=== PATIENT | female | born 1970 | race Caucasian/White ===

== ENCOUNTER 2020-08-13 01:52 | Inpatient (IN) | payer OTHER ==
[~2020-08-13] VITALS: Ht 160 cm; Wt 49.9 kg
[2020-08-13] MEDS ORDERED: CLONIDINE HCL 0.2 MG TABLET PO ONE (03:00)
[2020-08-13] MEDS ORDERED: NITROGLYCERIN OINT 1 GM PACKET TP ONE ×2 (03:00→03:30)
--- NOTE | 2020-08-13 03:00 | NUR ---
at bedside for MSE.
[2020-08-13] MEDS ORDERED: CLONIDINE HCL 0.2 MG TABLET ONE (03:30)
[2020-08-13] MEDS ORDERED: HYDROCODONE/APAP 5-325MG TABLET PO PRN (04:15)
[2020-08-13] MEDS ORDERED: Z GUARD REMEDY PASTE 57 GM TUBE TOP PRN (04:15)
[2020-08-13] MEDS ORDERED: ACETAMINOPHEN 325 MG TABLET PO PRN (04:15)
[2020-08-13] MEDS ORDERED: MAGNESIUM HYDROXIDE 30 ML LIQUID UDC PO PRN (04:15)
[2020-08-13] MEDS ORDERED: ONDANSETRON 4 MG/2 ML VIAL IV PRN (04:15)
[2020-08-13] MEDS ORDERED: TEMAZEPAM 15 MG CAPSULE PO PRN (04:15)
[2020-08-13 04:26] LABS: BASOPHILS # (AUTO) 0.1 K/uL (0.0-8.0); BASOPHILS % (AUTO) 0.9 % (0.0-2.0); EOSINOPHILS # (AUTO) 0.4 K/uL (0.0-0.7); EOSINOPHILS % (AUTO) 6.8 % (0.0-7.0); HEMATOCRIT 28.6 % (31.2-41.9); HEMOGLOBIN 9.3 g/dL (10.9-14.3); LYMPHOCYTES # (AUTO) 1.3 K/uL (20.0-40.0); LYMPHOCYTES % (AUTO) 21.8 % (20.5-51.5); MEAN CORPUSCULAR HEMOGLOBIN 28.7 uug (24.7-32.8); MEAN CORPUSCULAR HGB CONC 33 g/dL (32.3-35.6); MEAN CORPUSCULAR VOLUME 87.7 fL (75.5-95.3); MONOCYTES # (AUTO) 0.6 K/uL (2.0-10.0); MONOCYTES % (AUTO) 9.2 % (0.0-11.0); NEUTROPHILS # (AUTO) 3.8 K/uL (1.8-8.9); NEUTROPHILS % (AUTO) 61.3 % (38.5-71.5); PLATELET COUNT (AUTO) 238 K/uL (179-408); RED BLOOD CELL COUNT(AUTO) 3.26 MIL/uL (3.63-4.92); WHITE BLOOD COUNT (AUTO) 6.1 K/uL (3.8-11.8)
[2020-08-13] MEDS ORDERED: diphenhydrAMINE 25 MG CAP PO ONE ×2 (04:26→04:30)
[2020-08-13 04:30] LABS: POTASSIUM 4.9 mmol/L (3.5-5.1)
[2020-08-13 04:40] LABS: CREATININE 12.2 mg/dL (0.6-1.3)
--- NOTE | 2020-08-13 05:00 | NUR ---
Pt remains AxO x4, able to make needs known. No acute distress noted. Bedpan for urinary elimnation. 150 cc urine output. Continue to monitor.
[2020-08-13] MEDS ORDERED: hydralazine PO (05:12)
[2020-08-13] MEDS ORDERED: cozaar PO (05:12)
--- NOTE | 2020-08-13 06:42 | NUR ---
Pt. admitted to [facility] , under care of BRYCE HERNANDEZ Belongs List completed. No acute distress noted.
--- NOTE | 2020-08-13 07:30 | NUR ---
Patient received from night court magistrate. Patient is alert and oriented x 4. Patient is resting in bed. Sinus rhythm on tele at 94 BPM. Patient comfortable at 2 liters of oxygen. IV 22g on right foot.
[2020-08-13] MEDS: CLONIDINE HCL 0.1 MG TABLET PO PRN (08:01)
[2020-08-13] MEDS: PANTOPRAZOLE SODIUM 40 MG TABLET.DR PO SCH (08:05)
[2020-08-13 08:15] VITALS: BP 207/136
[2020-08-13 08:52] LABS: *BILIRUBIN,URIN NEGATIVE (NEGATIVE); *BLOOD, URINE NEGATIVE (NEGATIVE); *CLARITY,URINE SLIGHTLY CLOUDY (CLEAR); *COLOR,URINE YELLOW (YELLOW); *KETONES,URINE NEGATIVE (NEGATIVE); *UROBILINOGEN,URINE 0.2 E.U./dl (NORMAL); LEUKOCYTE ESTERASE ,URINE TRACE (NEGATIVE); NITRITE, URINE NEGATIVE (NEGATIVE); UGLUCOSE 1+ (NEGATIVE)
[2020-08-13] MEDS: MORPHINE SULFATE 2 MG/1 ML DISP.SYRIN IV PRN ×2 (08:56→13:49)
--- NOTE | 2020-08-13 09:00 | NUR ---
Pt BP was 207/136, HR 87, Catapress was given, morphine IV was given. Rapid response called, pt was stating she could not breath and needed help. BP increased to 233/175 post administration of catapress. GUIDANCE CONSULTANT made aware, gave phone orders to administer hydralazine 10mg IV, Lasix 20mg IV. pt started to relax and BP started to normalize. BP 150/128, HR 88. Will continue to monitor.
[2020-08-13] MEDS ORDERED: hydrALAZINE HCL 20 MG/1 ML VIAL IV ONE (09:15)
--- NOTE | 2020-08-13 09:25 | NUR ---
pt given Lasix 20mg IV once per MD order
[2020-08-13] MEDS ORDERED: FUROSEMIDE 20 MG/2 ML VIAL IV SCH (09:30)
[2020-08-13] MEDS ORDERED: FUROSEMIDE 20 MG/2 ML VIAL IV ONE (10:00)
[2020-08-13] MEDS ORDERED: hydrALAZINE HCL 20 MG/1 ML VIAL IV PRN (10:30)
[2020-08-13 11:46] VITALS: BP 175/100
--- NOTE | 2020-08-13 12:55 | NUR ---
pt finished with dialysis, per LAUREN Dickson output was 2.6L, BP 152/96, HR 98. Pt tolerated well. will continue to monitor.
[2020-08-13] MEDS ORDERED: LORAZEPAM 1 MG TABLET PO PRN (13:15)
[2020-08-13 13:45] LABS: BACTERIA,URINE MODERATE /HPF (NONE SEEN); RBC,URINE 0-3 /HPF (0-3); SQUAMOUS EPITHELIAL CELL,UR FEW /HPF (NONE SEEN); WBC,URINE 0-3 /HPF (0-3)
[2020-08-13] MEDS: QUETIAPINE FUMARATE 100 MG TABLET PO SCH ×2 (13:49→17:34)
[2020-08-13] MEDS ORDERED: HYDR100T27 PO (14:24)
[2020-08-13] MEDS ORDERED: CLON0.3P TD (14:27)
[2020-08-13] MEDS ORDERED: QUET100T PO (14:27)
[2020-08-13] MEDS ORDERED: CLONIDINE-TTS 3 PATCH TD SCH (14:45)
[2020-08-13 15:04] VITALS: BP 158/98
[2020-08-13] MEDS: CEFTRIAXONE 1 G in IV DEXTROSE 5% 50 ML IV SCH (15:31)
[2020-08-13] MEDS ORDERED: QUETIAPINE FUMARATE 100 MG TABLET PO SCH (17:00)
[2020-08-13] MEDS: hydrALAZINE HCL 50 MG TABLET PO SCH (17:34)
[2020-08-13] MEDS ORDERED: CEphaleXIN 500 MG CAPSULE PO SCH (18:00)
--- NOTE | 2020-08-13 18:51 | NUR ---
Patient is resting in bed. Alert and oriented x 4. Skin is intact. Pt is normal sinus rhythm on tele monitor. Pt is on 3L of oxygen saturating at 96%. No signs of distress at this time. No reports of pain noted at this time. Patient is ambulatory with assist. On renal specific diet. Pt was dialyzed today, 2.6L output, permacath on right chest. Patient tolerated well. Nitropaste on left chest. Voids via bedside commode. Patient has a IV 22g on right foot, patent. All medications given as ordered. Bed in low and locked position, call light within reach, bed alarm on, and safety and fall precautions in place. Will endorse to oncoming nurse.
--- NOTE | 2020-08-13 20:11 | NUR ---
Received patient in bed alert and able to make needs known. On O2 at 3 LPM via NC saturating well.Denies pain. No s/s of distress noted.IV ON right foot patent and intact. Perma cath on right upper chest in place with dressing clean and dry.Continue safety measures. Call light with in reach .
[2020-08-13 20:20] VITALS: BP 167/108
[2020-08-13] MEDS: QUETIAPINE FUMARATE 200 MG TABLET PO SCH (20:24)
[2020-08-14] VITALS (7 sets, daily range): BP systolic 143–182; BP diastolic 85–122
[2020-08-14] MEDS: CLONIDINE HCL 0.1 MG TABLET PO PRN (00:39)
[2020-08-14] MEDS: MORPHINE SULFATE 2 MG/1 ML DISP.SYRIN IV PRN ×2 (04:27→20:55)
[2020-08-14] MEDS: PANTOPRAZOLE SODIUM 40 MG TABLET.DR PO SCH (06:34)
[2020-08-14 06:39] LABS: BASOPHILS % (AUTO) 0.1 % (0.0-2.0); EOSINOPHILS # (AUTO) 0.4 K/uL (0.0-0.7); EOSINOPHILS % (AUTO) 6.1 % (0.0-7.0); HEMATOCRIT 28.9 % (31.2-41.9); HEMOGLOBIN 9.4 g/dL (10.9-14.3); LYMPHOCYTES # (AUTO) 1.1 K/uL (20.0-40.0); LYMPHOCYTES % (AUTO) 18.5 % (20.5-51.5); MEAN CORPUSCULAR HGB CONC 33 g/dL (32.3-35.6); MEAN CORPUSCULAR VOLUME 88.7 fL (75.5-95.3); MONOCYTES # (AUTO) 0.8 K/uL (2.0-10.0); MONOCYTES % (AUTO) 13.6 % (0.0-11.0); NEUTROPHILS # (AUTO) 3.6 K/uL (1.8-8.9); NEUTROPHILS % (AUTO) 61.7 % (38.5-71.5); PLATELET COUNT (AUTO) 204 K/uL (179-408); RED BLOOD CELL COUNT(AUTO) 3.26 MIL/uL (3.63-4.92); WHITE BLOOD COUNT (AUTO) 5.9 K/uL (3.8-11.8)
[2020-08-14 06:50] LABS: MAGNESIUM 2.1 mg/dL (1.8-2.4); PHOSPHOROUS 6.3 mg/dL (2.5-4.9); POTASSIUM 4.5 mmol/L (3.5-5.1)
[2020-08-14 07:37] LABS: CREATININE 9.3 mg/dL (0.6-1.3)
[2020-08-14] MEDS: QUETIAPINE FUMARATE 100 MG TABLET PO SCH ×3 (08:32→17:20)
[2020-08-14] MEDS: hydrALAZINE HCL 50 MG TABLET PO SCH ×3 (08:32→17:20)
[2020-08-14] MEDS: LOSARTAN POTASSIUM 50 MG TABLET PO SCH (08:45)
[2020-08-14] MEDS: AMLODIPINE 10 MG TABLET PO SCH (08:45)
[2020-08-14] MEDS: ISOSORBIDE MONONITRATE 60 MG TAB.SR.24H PO SCH (09:27)
--- NOTE | 2020-08-14 12:05 | NUR ---
Domestic Laundry Worker consultation: Expander Machine Operator met with this patient today. Reason for consultation is homelessness and polysubstance use. Patient was lying down in her hospital bed when SW entered the room. Patient is awake, alert, oriented, willing to meet with this SW. Patient reports that she came to the hospital due to SOB and need for dialysis (patient received dialysis 3 x week). Patient reports being homeless and has been living at the [facility] for the past year ([address], [place] [address]). Patient presented agitated when asked about her living arrangement, stating "how many times do I have to answer this question". Patient's phone number is [phone]. Patient reports that her discharge plans are to return back to the [facility]. Patient is diagnosed with Bipolar. Patient reported not being compliant with meds, stating "I just didn't take them". Patient seen by psychiatry during this hospitalization. Patient has [employer] insurance, and receives SSI. Patient denied use of alcohol or drugs, however per patients history and physician report, patient is a current smoker and polysubstance user. Throughout this interview, patient observed to be fidgety in bed, responses were short, affect was blunted. Patient did not consistently maintain eye contact with this SW. SW offered patient homeless community resources, and patient expressed agreement with receiving these resources. SW provided patient with the following resources: the [phone] [facility] Winter Prison Program that provides locations of the winter shelters: [facility], [place], ; [facility], [address], [address], ; [facility], [facility], [address], [address], ; [employer] [place], [place], [address], [address], ; [employer] [place], [place], [address], [place], [address]; [phone]; [employer] [facility], [facility], [address], [address], ; [facility] at [facility], [address] [place], [address], [phone]; Home at [facility], [address], [address], ; [facility], [address], [address], ; [employer] [place], [employer], [address] [place] [address], ; [employer] [place] [place], [facility], [address] [place], [address], ; [employer] [place], [facility], [address], [address], ; [facility], [address] [place] [address], , [facility], [address], [place] , , [place], [address], [place] [address], , [facility], [address] [place] [address], , [facility], [address] [facility] [place] [address], , [place], [address] [place] [address], ; the [facility] homeless directory which provides a list of places that individuals can go to throughout the week for hot meals, sack lunches, food pantries, and showers; a list of mental health clinics: [facility] [address] [place] [address], ; [facility] [address] [place] [address], ; [place] [address] [place] [address], ; a list of medical clinics: [facility] [address], [place]. [place], ; [facility] [address], [address], [place] [address]; [facility] [address] [facility] [place] [address], ; and a list of substance abuse programs: [facility] Substance Abuse Self-helpline ; [facility] ; [facility] ; [facility] ; [facility] ; [facility] [phone]; [facility] [phone]. SW also provided patient with information on locations of pharmacies. Patient signed the Homeless Patient Waiver form. This SW filed the waiver in the patient's chart. SW will continue to remain available to the patient, as needed.
[2020-08-14] MEDS ORDERED: CLONIDINE-TTS 3 PATCH TD SCH (13:24)
[2020-08-14] MEDS: CEFTRIAXONE 1 G in IV DEXTROSE 5% 50 ML IV SCH (14:01)
--- NOTE | 2020-08-14 19:30 | NUR ---
Patient received from day shift RNs. Pt assessed, AOx4, on room air, no respiratory distress, complaint of lower back pain at this time. refused bed alarm despite explaining its purpose and risk. Reinforced to call for assistance.
[2020-08-14] MEDS: QUETIAPINE FUMARATE 200 MG TABLET PO SCH (21:02)
--- NOTE | 2020-08-14 21:51 | NUR ---
Made pt aware to call for assistance when she needs to use the bedside commode. Pt refused bed alarm despite explanation for its importance and reason. Verbalized refusal. Call light within reach and frequent rounding made
--- NOTE | 2020-08-14 23:03 | NUR ---
Patient asleep at this time.
--- NOTE | 2020-08-14 23:10 | NUR ---
Seroquel 100mg pulled out instead of 200mg, opened but wasted in the pyxis witnessed by trupti Milan RN
[2020-08-15 00:08] VITALS: BP 156/134
[2020-08-15 04:16] VITALS: BP 149/67
[2020-08-15] MEDS: CLONIDINE HCL 0.1 MG TABLET PO PRN (04:45)
--- NOTE | 2020-08-15 04:46 | NUR ---
Elevated BP per RIG HAND 171/105, rechecked 179/114 (129). catapres PO 0.1 PRN given at this time, will recheck BP in 30 mins'
[2020-08-15 07:01] LABS: BASOPHILS % (AUTO) 0.5 % (0.0-2.0); EOSINOPHILS # (AUTO) 0.4 K/uL (0.0-0.7); EOSINOPHILS % (AUTO) 9.6 % (0.0-7.0); HEMATOCRIT 27.1 % (31.2-41.9); HEMOGLOBIN 8.8 g/dL (10.9-14.3); LYMPHOCYTES # (AUTO) 1.2 K/uL (20.0-40.0); LYMPHOCYTES % (AUTO) 26.1 % (20.5-51.5); MEAN CORPUSCULAR HEMOGLOBIN 28.4 uug (24.7-32.8); MEAN CORPUSCULAR HGB CONC 33 g/dL (32.3-35.6); MEAN CORPUSCULAR VOLUME 87.2 fL (75.5-95.3); MONOCYTES # (AUTO) 0.8 K/uL (2.0-10.0); MONOCYTES % (AUTO) 16.8 % (0.0-11.0); NEUTROPHILS # (AUTO) 2.1 K/uL (1.8-8.9); PLATELET COUNT (AUTO) 185 K/uL (179-408); RED BLOOD CELL COUNT(AUTO) 3.11 MIL/uL (3.63-4.92); WHITE BLOOD COUNT (AUTO) 4.6 K/uL (3.8-11.8)
[2020-08-15] MEDS: PANTOPRAZOLE SODIUM 40 MG TABLET.DR PO SCH (07:01)
--- NOTE | 2020-08-15 07:05 | NUR ---
hAND OFF GIVEN TO DAY SHIFT. LAUREN [place] and LAUREN Cesar.
[2020-08-15 07:08] LABS: MAGNESIUM 2.1 mg/dL (1.8-2.4)
[2020-08-15 07:32] LABS: CREATININE 10.9 mg/dL (0.6-1.3); PHOSPHOROUS 8.2 mg/dL (2.5-4.9)
[2020-08-15] MEDS: AMLODIPINE 10 MG TABLET PO SCH (08:30)
[2020-08-15] MEDS: ISOSORBIDE MONONITRATE 60 MG TAB.SR.24H PO SCH (08:31)
[2020-08-15] MEDS: LOSARTAN POTASSIUM 50 MG TABLET PO SCH (08:31)
[2020-08-15] MEDS: hydrALAZINE HCL 50 MG TABLET PO SCH ×2 (08:32→12:46)
[2020-08-15] MEDS: QUETIAPINE FUMARATE 100 MG TABLET PO SCH ×2 (08:35→12:46)
[2020-08-15] MEDS ORDERED: LABETALOL HCL 100 MG TABLET PO SCH (09:00)
[2020-08-15 11:30] VITALS: BP 131/84
--- NOTE | 2020-08-15 12:47 | NUR ---
PATIENT IS CURRENTLY ON DIALYSIS. HELD 1300 MEDICATIONS. WILL CONTINUE TO MONITOR.
--- NOTE | 2020-08-15 14:45 | NUR ---
DIALYSIS CONCLUDED. REMOVED 1L. BP 122/72. NO S/S OF DISTRESS OR SOB NOTED.
[2020-08-15 15:15] VITALS: BP 139/80
--- NOTE | 2020-08-15 15:15 | NUR ---
PATIENT LEAVING AGAINST MEDICAL ADVICE. SPOKE WITH PATIENT ABOUT BENEFIT OF STAYING AND RISK OF LEAVING AGAINST MEDICAL ADVICE. PATIENT REMAINED ADAMANT ABOUT LEAVING. VSS. IV REMOVED, NO S/S OF BLEEDING. ID BAND REMOVED. CABLEMAN NOTIFIED OF PATIENT DECISION. AMA PAPER SIGNED.
[2020-08-15 16:12] LABS: EOSINOPHILS % (MANUAL) 8 % (0-8); LYMPHOCYTES % (MANUAL) 26 % (20-40); MONOCYTES % (MANUAL) 11 % (2-10); NEUTROPHILS % (MANUAL) 55 % (42-75)
== END 2020-08-15 15:15 | disposition left against medical advice (07) | DRG 199 ==
LOC: ER 02:03 → TELE3 04:35
PROVIDERS: ADMIT Registered Nurse; ATTEND Registered Nurse
PROC: 5A1D70Z Performance of Urinary Filtration, Intermittent, Less than 6 Hours Per Day (ICD-10-PCS; principal; 2020-08-13)
DX: I16.1 Hypertensive emergency (principal); I13.2 Hypertensive heart and chronic kidney disease with heart failure and with stage 5 chronic kidney disease, or end stage renal disease; I50.31 Acute diastolic (congestive) heart failure; N18.6 End stage renal disease; J96.01 Acute respiratory failure with hypoxia; Z91.15 Patient's noncompliance with renal dialysis; F41.9 Anxiety disorder, unspecified; N39.0 Urinary tract infection, site not specified; Z59.0 Homelessness; J15.9 Unspecified bacterial pneumonia; F19.10 Other psychoactive substance abuse, uncomplicated; F17.210 Nicotine dependence, cigarettes, uncomplicated; Z99.2 Dependence on renal dialysis; B96.89 Other specified bacterial agents as the cause of diseases classified elsewhere; F31.64 Bipolar disorder, current episode mixed, severe, with psychotic features; F14.159 Cocaine abuse with cocaine-induced psychotic disorder, unspecified; Z20.822 Contact with and (suspected) exposure to COVID-19
CPT/HCPCS: 36415; 70030-TC; 71045; 83735; 84100; 85025; 87086; 93307; G0378; J0360; J0696; J1940; J2270; J7050; J7060; Q0163

== ENCOUNTER 2020-08-17 23:23 | Inpatient (IN) | payer OTHER ==
[~2020-08-17] VITALS: Ht 160 cm; Wt 56.7 kg
[~2020-08-17 23:23] MED LIST: CLON0.3P TD; HYDR100T27 PO; QUET100T PO
[2020-08-17] MEDS ORDERED: ASPIRIN 325 MG TABLET PO ONE (23:45)
[2020-08-17] MEDS ORDERED: NITROGLYCERIN 0.4 MG/TAB BOTTLE SL ONE ×2 (23:45→23:58)
[2020-08-17] MEDS ORDERED: ASPIRIN 325 MG TABLET ONE (23:58)
[2020-08-18 00:07] LABS: EOSINOPHILS # (AUTO) 1.5 K/uL (0.0-0.7); EOSINOPHILS % (AUTO) 20.8 % (0.0-7.0); HEMATOCRIT 30.4 % (31.2-41.9); HEMOGLOBIN 9.7 g/dL (10.9-14.3); LYMPHOCYTES # (AUTO) 2.9 K/uL (20.0-40.0); LYMPHOCYTES % (AUTO) 40.8 % (20.5-51.5); MEAN CORPUSCULAR HGB CONC 32 g/dL (32.3-35.6); MEAN CORPUSCULAR VOLUME 87.3 fL (75.5-95.3); MONOCYTES # (AUTO) 0.3 K/uL (2.0-10.0); MONOCYTES % (AUTO) 4.3 % (0.0-11.0); NEUTROPHILS # (AUTO) 2.4 K/uL (1.8-8.9); NEUTROPHILS % (AUTO) 34.1 % (38.5-71.5); PLATELET COUNT (AUTO) 201 K/uL (179-408); RED BLOOD CELL COUNT(AUTO) 3.48 MIL/uL (3.63-4.92); WHITE BLOOD COUNT (AUTO) 7.1 K/uL (3.8-11.8)
[2020-08-18 00:31] LABS: ETHANOL < 3 MG/DL (0-0)
[2020-08-18 00:33] LABS: ALANINE AMINOTRANSFERASE 16 U/L (14-59); ALKALINE PHOSPHATASE 94 U/L (50-136); ASPARTATE AMINOTRANSFERASE 18 U/L (15-37); BILIRUBIN,DIRECT 0.4 mg/dL (0.0-0.2); BILIRUBIN,TOTAL 0.4 mg/dL (0.2-1.0); CARBON DIOXIDE 21 mmol/L (21-32); CHLORIDE 103 mmol/L (98-107); GLUCOSE 151 mg/dL (74-106); POTASSIUM 5.2 mmol/L (3.5-5.1); TOTAL PROTEIN, SERUM 7.8 g/dL (6.4-8.2)
[2020-08-18 00:34] LABS: CREATININE 13.5 mg/dL (0.6-1.3); UREA NITROGEN, BLOOD 102 mg/dL (7-18)
[2020-08-18] MEDS ORDERED: DEXTROSE 50% 50 ML DISP.SYRIN IV ONE (01:00)
[2020-08-18] MEDS ORDERED: ACETAMINOPHEN ES 500 MG TABLET PO ONE (01:00)
[2020-08-18] MEDS ORDERED: INSULIN REGULAR, HUMAN 300 UNIT/3 ML VIAL IV ONE (01:00)
[2020-08-18] MEDS ORDERED: ALBUTEROL SULFATE 2.5 MG/3 ML NEBU NEB ONE (01:00)
[2020-08-18] MEDS ORDERED: SODIUM POLYSTYRENE SULFONATE 15 G/60 ML LIQUID UDC PO ONE (01:00)
[2020-08-18] MEDS ORDERED: NITROGLYCERIN OINT 1 GM PACKET TP ONE ×2 (01:00→01:03)
[2020-08-18] MEDS ORDERED: ACETAMINOPHEN ES 500 MG TABLET ONE (01:03)
[2020-08-18 01:04] LABS: *BILIRUBIN,URIN NEGATIVE (NEGATIVE); *CLARITY,URINE CLEAR (CLEAR); *COLOR,URINE YELLOW (YELLOW); *KETONES,URINE NEGATIVE (NEGATIVE); *URINE HCG, QUAL NEGATIVE (NEGATIVE); *UROBILINOGEN,URINE 0.2 E.U./dl (NORMAL); LEUKOCYTE ESTERASE ,URINE 1+ (NEGATIVE); NITRITE, URINE NEGATIVE (NEGATIVE); PH,URINE 7.5 (5.0-8.0); UGLUCOSE TRACE (NEGATIVE)
[2020-08-18] MEDS ORDERED: lisinopril PO (01:06)
[2020-08-18] MEDS ORDERED: cozaar PO (01:06)
[2020-08-18] MEDS ORDERED: DEXTROSE 50% 50 ML DISP.SYRIN ONE (01:09)
[2020-08-18] MEDS ORDERED: SODIUM POLYSTYRENE SULFONATE 15 G/60 ML LIQUID UDC ONE (01:09)
[2020-08-18 01:10] LABS: *BLOOD, URINE TRACE (NEGATIVE)
[2020-08-18] MEDS ORDERED: INSULIN REGULAR, HUMAN 300 UNIT/3 ML VIAL ONE (01:10)
[2020-08-18 01:11] LABS: BACTERIA,URINE NONE SEEN /HPF (NONE SEEN); MUCUS,URINE FEW /LPF (0-FEW); SQUAMOUS EPITHELIAL CELL,UR MANY /HPF (NONE SEEN); URINE AMORPHOUS PHOSPHATES FEW /HPF
[2020-08-18] MEDS ORDERED: ACETAMINOPHEN 325 MG TABLET PO PRN (01:15)
[2020-08-18] MEDS ORDERED: Z GUARD REMEDY PASTE 57 GM TUBE TOP PRN (01:15)
[2020-08-18] MEDS ORDERED: ONDANSETRON 4 MG/2 ML VIAL IV PRN (01:15)
[2020-08-18] MEDS ORDERED: HYDROCODONE/APAP 5-325MG TABLET PO PRN (01:15)
[2020-08-18] MEDS ORDERED: TEMAZEPAM 15 MG CAPSULE PO PRN (01:15)
[2020-08-18] MEDS ORDERED: MAGNESIUM HYDROXIDE 30 ML LIQUID UDC PO PRN (01:15)
[2020-08-18] MEDS ORDERED: CLONIDINE-TTS 3 PATCH TD SCH (01:15)
[2020-08-18 01:21] LABS: *AMPHETAMINE, URINE NEGATIVE (NEGATIVE); *CANNABINOID, URINE NEGATIVE (NEGATIVE); *COCCAINE, URINE POSITIVE (NEGATIVE); *OPIATE, URINE POSITIVE (NEGATIVE); *PHENCYCLIDINE SCREEN,URINE NEGATIVE (NEGATIVE)
[2020-08-18 01:37] LABS: ACETAMINOPHEN < 2.0 ug/mL (10-30)
[2020-08-18] MEDS ORDERED: CEFTRIAXONE 1 G in IV DEXTROSE 5% 50 ML IV ONE (01:45)
[2020-08-18] MEDS ORDERED: hydrALAZINE HCL 20 MG/1 ML VIAL IV ONE (02:00)
[2020-08-18] MEDS ORDERED: LABETALOL HCL 100 MG/20 ML VIAL IV ONE (02:00)
[2020-08-18] MEDS ORDERED: hydrALAZINE HCL 20 MG/1 ML VIAL ONE (02:01)
[2020-08-18] MEDS ORDERED: LABETALOL HCL 100 MG/20 ML VIAL ONE (02:06)
[2020-08-18] MEDS ORDERED: CEFTRIAXONE /D5W 50ML IVPB **ER PYXIS IV ONE (02:06)
[2020-08-18 03:02] VITALS: BP 150/100
[2020-08-18 05:00] VITALS: BP 150/81
[2020-08-18] MEDS: MORPHINE SULFATE 2 MG/1 ML DISP.SYRIN IV PRN (08:52)
[2020-08-18] MEDS: QUETIAPINE FUMARATE 100 MG TABLET PO SCH ×2 (08:56→17:08)
[2020-08-18] MEDS: hydrALAZINE HCL 25 MG TABLET PO SCH ×3 (08:57→17:08)
[2020-08-18] MEDS ORDERED: LOSA100T31 PO (11:40)
[2020-08-18 12:00] VITALS: BP 171/102
[2020-08-18] MEDS ORDERED: AMLO10TA4 PO (13:24)
[2020-08-18] MEDS: LOSARTAN POTASSIUM 50 MG TABLET PO SCH ×2 (13:31→20:27)
[2020-08-18 16:00] VITALS: BP 172/102
[2020-08-18 20:15] VITALS: BP 169/95
[2020-08-18] MEDS ORDERED: hydrALAZINE HCL 50 MG TABLET PO PRN (21:45)
[2020-08-19 00:09] VITALS: BP 90/43
[2020-08-19 04:30] VITALS: BP 155/100
[2020-08-19 06:26] LABS: BASOPHILS % (AUTO) 0.3 % (0.0-2.0); EOSINOPHILS # (AUTO) 0.2 K/uL (0.0-0.7); EOSINOPHILS % (AUTO) 4.8 % (0.0-7.0); HEMATOCRIT 27.4 % (31.2-41.9); HEMOGLOBIN 8.8 g/dL (10.9-14.3); LYMPHOCYTES # (AUTO) 1.2 K/uL (20.0-40.0); LYMPHOCYTES % (AUTO) 27.5 % (20.5-51.5); MEAN CORPUSCULAR HEMOGLOBIN 27.6 uug (24.7-32.8); MEAN CORPUSCULAR HGB CONC 32 g/dL (32.3-35.6); MEAN CORPUSCULAR VOLUME 86.2 fL (75.5-95.3); MONOCYTES # (AUTO) 0.7 K/uL (2.0-10.0); MONOCYTES % (AUTO) 16.1 % (0.0-11.0); NEUTROPHILS # (AUTO) 2.3 K/uL (1.8-8.9); NEUTROPHILS % (AUTO) 51.3 % (38.5-71.5); PLATELET COUNT (AUTO) 165 K/uL (179-408); RED BLOOD CELL COUNT(AUTO) 3.18 MIL/uL (3.63-4.92); WHITE BLOOD COUNT (AUTO) 4.5 K/uL (3.8-11.8)
[2020-08-19 06:36] LABS: MAGNESIUM 1.9 mg/dL (1.8-2.4); PHOSPHOROUS 6.9 mg/dL (2.5-4.9); POTASSIUM 4.2 mmol/L (3.5-5.1)
[2020-08-19 07:02] LABS: CREATININE 9.2 mg/dL (0.6-1.3)
[2020-08-19] MEDS: hydrALAZINE HCL 50 MG TABLET PO SCH ×3 (07:41→21:44)
[2020-08-19 08:39] VITALS: BP 208/33
[2020-08-19] MEDS: QUETIAPINE FUMARATE 100 MG TABLET PO SCH ×2 (09:04→17:06)
[2020-08-19] MEDS: AMLODIPINE 10 MG TABLET PO SCH (09:04)
[2020-08-19] MEDS: LOSARTAN POTASSIUM 50 MG TABLET PO SCH ×2 (09:05→20:33)
[2020-08-19 14:41] LABS: EOSINOPHILS % (MANUAL) 5 % (0-8); LYMPHOCYTES % (MANUAL) 28 % (20-40); MONOCYTES % (MANUAL) 17 % (2-10); NEUTROPHILS % (MANUAL) 50 % (42-75)
[2020-08-19] MEDS ORDERED: ALTEPLASE 2 MG VIAL IVP ONE (15:45)
[2020-08-19] MEDS ORDERED: EPOETIN ALFA 10,000 UNITS/ML VIAL SQ ONE (16:00)
[2020-08-19] MEDS: MORPHINE SULFATE 2 MG/1 ML DISP.SYRIN IV PRN (17:07)
[2020-08-19 20:15] VITALS: BP 161/101
[2020-08-19] MEDS ORDERED: CLONIDINE-TTS 3 PATCH TD SCH (21:00)
[2020-08-20 01:47] VITALS: BP 160/90
[2020-08-20 04:18] VITALS: BP 176/100
[2020-08-20] MEDS: hydrALAZINE HCL 50 MG TABLET PO SCH ×2 (05:06→13:31)
[2020-08-20 06:55] LABS: BASOPHILS % (AUTO) 0.8 % (0.0-2.0); EOSINOPHILS # (AUTO) 0.3 K/uL (0.0-0.7); HEMATOCRIT 27.4 % (31.2-41.9); HEMOGLOBIN 8.7 g/dL (10.9-14.3); LYMPHOCYTES # (AUTO) 1.9 K/uL (20.0-40.0); MEAN CORPUSCULAR HEMOGLOBIN 27.5 uug (24.7-32.8); MEAN CORPUSCULAR HGB CONC 32 g/dL (32.3-35.6); MEAN CORPUSCULAR VOLUME 86.5 fL (75.5-95.3); MONOCYTES # (AUTO) 0.8 K/uL (2.0-10.0); NEUTROPHILS # (AUTO) 1.5 K/uL (1.8-8.9); NEUTROPHILS % (AUTO) 33.2 % (38.5-71.5); PLATELET COUNT (AUTO) 152 K/uL (179-408); RED BLOOD CELL COUNT(AUTO) 3.17 MIL/uL (3.63-4.92); WHITE BLOOD COUNT (AUTO) 4.6 K/uL (3.8-11.8)
[2020-08-20 07:06] LABS: HEPATITIS B SURFACE AB Non Reactive (.); HEPATITIS B SURFACE AG Negative (Negative)
[2020-08-20 07:27] LABS: POTASSIUM 4.3 mmol/L (3.5-5.1)
[2020-08-20] MEDS: AMLODIPINE 10 MG TABLET PO SCH (09:10)
[2020-08-20] MEDS: LOSARTAN POTASSIUM 50 MG TABLET PO SCH (09:10)
[2020-08-20] MEDS: QUETIAPINE FUMARATE 100 MG TABLET PO SCH (09:10)
[2020-08-20 11:50] VITALS: BP 158/109
[2020-08-20 13:31] VITALS: BP 158/109
[2020-08-20 20:41] LABS: EOSINOPHILS % (MANUAL) 5 % (0-8); LYMPHOCYTES % (MANUAL) 43 % (20-40); MONOCYTES % (MANUAL) 19 % (2-10); NEUTROPHILS % (MANUAL) 33 % (42-75)
== END 2020-08-20 14:28 | disposition left against medical advice (07) | DRG 816 ==
LOC: ER 23:29 → TELE3 08-18 02:20 → MEDSURG3 08-20 05:19
PROVIDERS: ADMIT Nurse Practitioner Acute Care; ATTEND Family Medicine
PROC: 5A1D70Z Performance of Urinary Filtration, Intermittent, Less than 6 Hours Per Day (ICD-10-PCS; principal; 2020-08-18)
DX: T40.5X1A Poisoning by cocaine, accidental (unintentional), initial encounter (principal); I16.1 Hypertensive emergency; E87.5 Hyperkalemia; I13.2 Hypertensive heart and chronic kidney disease with heart failure and with stage 5 chronic kidney disease, or end stage renal disease; N18.6 End stage renal disease; I50.32 Chronic diastolic (congestive) heart failure; I50.84 End stage heart failure; Z99.2 Dependence on renal dialysis; Y92.89 Other specified places as the place of occurrence of the external cause; Z59.0 Homelessness; D63.1 Anemia in chronic kidney disease; F17.210 Nicotine dependence, cigarettes, uncomplicated; F41.9 Anxiety disorder, unspecified; Z87.01 Personal history of pneumonia (recurrent); Z87.440 Personal history of urinary (tract) infections; Z20.822 Contact with and (suspected) exposure to COVID-19; I25.10 Atherosclerotic heart disease of native coronary artery without angina pectoris; N39.0 Urinary tract infection, site not specified; R07.9 Chest pain, unspecified; F14.188 Cocaine abuse with other cocaine-induced disorder; Z91.15 Patient's noncompliance with renal dialysis
CPT/HCPCS: 36415; 70030-TC; 71045; 83690; 83735; 84100; 84703; 85025; 85730; 86706; 87086; 87340; 93005; 94640; A4663; A9150; G0378; G0480; J0360; J0696; J1815; J2270; J2405; J2997; J3490